=== PATIENT | male | born 1980 | race Caucasian/White ===

== ENCOUNTER 2025-07-12 03:50 | Emergency (ER) | payer MEDICAID, SELFPAY ==
[2025-07-12 03:54] VITALS: BP 139/77; PULSE 80; RESP 16; TEMP 37.1; O2SAT 100
[2025-07-12 03:57] VITALS: BP 139/77; PULSE 80; RESP 16; TEMP 37.1; O2SAT 100
--- NOTE | 2025-07-12 04:14 | ED.GENADUL_ITS ---
Discharge Plan Disposition Patient Disposition: Home Condition: Good Discharge Details Clinical Impression: Dental infection Primary Care Provider: [facility] Provider: Tiffanie Schwab Home Meds and New Rx's Prescriptions: New clindamycin HCl [Cleocin HCl] 150 mg capsule 450 mg PO TID 10 Days Qty: 90 0RF Discharge Instructions Instructions: Dental Pain ED, Tooth Abscess ED Additional Instructions: Clindamycin 450mg every 8 hours for the next 10 days. Tylenol and ibuprofen over the counter; follow the directions on the bottle. You need to see a dentist. A list has been provided to you. Please let them know you were seen in the emergency department and you should be seen within the next 48 hours. Please also call your primary care doctor in the morning to schedule an appointment to be seen within the next 48-72 hours to followup on your visit today. Return to the emergency department for new or worsening symptoms including new/different/worse pain or swelling, difficutly swallowing, neck pain, fever, or if you have any other concerns. Stand Alone Forms: Portal Information HPI General Mode of arrival: ambulatory . Date/Time Provider Initiated Documentation: 07/12/25 03:52 . Limitations to Documentation: no limitations . Information obtained by: patient . HPI Narrative: 44yo male denies chronic medical conditions presenting for acute dental pain. Tooth in left upper part of his mouth began hurting yesterday afternoon; took tylenol without improvement. Tonight woke from sleep with more severe pain. Has had similar symptoms in the past with tooth abscesses. Feels like the left side of his face may be a little swollen. Does not currently have a dentist. No neck pain, difficultly swallowing, vocal changes, or fevers. Otherwise in his usual state of health. Related Data Home Medications ?Medication ?Instructions ?Recorded ?Confirmed clindamycin HCl 150 mg capsule 450 mg (3 x 150 mg) PO TID 10 days 07/12/25 (Cleocin HCl) #90 caps Previous Rx's ?Medication ?Instructions ?Recorded clindamycin HCl 150 mg capsule 450 mg (3 x 150 mg) PO TID 10 days 07/12/25 (Cleocin HCl) #90 caps Allergies Allergy/AdvReac Type Severity Reaction Status Date / Time Penicillins Allergy Severe Anaphylaxis Verified 07/12/25 04:03 General Stated Complaint: DentalOral GONZALEZ: 3 Review of Systems Narrative: see HPI Exam Narrative Exam Narrative: General: Alert, well appearing, well nourished, in no acute distress. Head: Normocephalic, atraumatic. Neck: Trachea midline, ?Neck supple. No cervical lympadenoapthy. ENT: ?No trismus. MMM.? Uvula midline. No oropharygeal lesions or exudate. Mastoid nontender. No bony tenderness to face or jaw. Poor dentition, multiple cracked/missing teeth. #13 & #14 partially absent, what remains is TTP. Surrounding ginigival erythema. No visible apical/periapical abscess. Cardiac: ?RRR, well perfused. Resp: No respiratory distress. Speaking in full sentences. Extremities: ?No deformities.? Neurologic: GCS 15. ? Moves all extremities freely against gravity Course Vital Signs Vital signs: Vital Signs Temperature 37.1 C 07/12/25 03:54 Pulse 80 07/12/25 03:54 Respiratory Rate 16 07/12/25 03:54 Blood Pressure 139/77 07/12/25 03:54 Pulse Oximetry 100 07/12/25 03:54 Temperature 37.1 C 07/12/25 03:57 Temperature Source Temporal Artery Scan 07/12/25 03:57 Pulse 80 07/12/25 03:57 Respiratory Rate 16 07/12/25 03:57 Blood Pressure 139/77 07/12/25 03:57 Blood Pressure Position Sitting 07/12/25 03:57 Pulse Oximetry 100 07/12/25 03:57 Oxygen Delivery Method Room Air 07/12/25 03:57 Oxygen Flow Rate 0 07/12/25 03:57 Pain Level 7 07/12/25 03:57 Comment Pain in left upper jaw 07/12/25 03:57 Medical Decision Making 44yo male denies chronic medical conditions presenting for acute dental pain x 1 day. Normal vital signs on arrival. Poor dention throughout; what is left of #14 &#15 TTP. No clear apical/periapical abscess. Exam not suggestive of acute necrotizine ulcerative ginigivits, julio césar's, [employer], RPA, cellulitis, bucchal space infection, other deep space infection; not septic. No indication for labs or CT imaging. Will treat with clindamycin (pt with pxn allergy) and advise close dental followup. Discharged home; discharge instructions and return precautions were reviewed with patient who verbalized understanding. All questions were answered and he is in full agreement with the plan. PFSH All Active Problems (Updated 07/12/25 @ 04:17 by Tiffanie Schwab MD) Dental infection (Acute) Social History Smoking/Tobacco Use Status: Current every day Tobacco Type: cigarettes Tobacco: How many years used: 20 Smoking risk assessment performed?: Yes Alcohol Intake: current Alcohol Intake frequency: holidays/special occasions only Drug use: Never Substance use type: does not use Housing: apartment Do you feel safe at home: Yes Do you feel safe in your relationship?: Yes
[2025-07-12] MEDS: Ketorolac 15 MG/ML VIAL IM (04:30)
[2025-07-12] MEDS: Clindamycin 150 MG CAP 450 MG PO (04:30)
[2025-07-12 04:37] VITALS: BP 139/77; PULSE 80; RESP 16; TEMP 37.1; O2SAT 100
== END 2025-07-12 04:39 | disposition home or self-care (01) ==
PROVIDERS: Emergency Provider Student in an Organized Health Care Education/Training Program
DX: K04.7 Periapical abscess without sinus (principal); F17.210 Nicotine dependence, cigarettes, uncomplicated
CPT/HCPCS: 96372; 99283; J1885